=== PATIENT | male | born 1960 | race Caucasian/White ===

== ENCOUNTER 2024-06-28 12:49 | Inpatient (IN) ==
[2024-06-28 13:47] LABS: Hematocrit (blood only) 39.9 % (42.0-52.0); Hemoglobin 13.5 g/dl (14.0-18.0); Mean Corpuscular Hemoglobin 30.5 pg (25.0-34.0); Mean Corpuscular Hgb Conc 33.8 g/dL (32.0-36.0); Mean Corpuscular Volume 90.3 fL (80.0-100.0); Mean Platelet Volume 10.9 fL (9.4-12.4); Platelet Count 155 K/uL (130-400); RDW Coefficient of Variation 14.1 % (11.5-14.5); RDW Standard Deviation 47.1 fL (36.4-46.3); Red Blood Count 4.42 M/uL (4.70-6.10); White Blood Count 7.27 K/ul (4.8-10.8)
[2024-06-28 14:07] LABS: Albumin Level 3.7 gm/dl (3.4-5.0); BUN Creatinine Ratio 19.8 (10-20); Bilirubin,Total 0.9 mg/dl (0.2-1.0); Calcium 9.2 mg/dl (8.6-10.3); Creatinine Clr Calc Pharmacy 104.9 ml/min; Globulin 3.8 gm/dl (2.5-4.0); Potassium 3.9 mmol/L (3.5-5.1); Total Protein 7.5 gm/dl (6.0-8.3)
--- NOTE | 2024-06-28 14:08 | XRay Report ---
XR chest 1V portable HISTORY: 64 years-old Male Chest pain, nonspecific COMPARISON: None TECHNIQUE: AP view of the chest FINDINGS: Cardiac silhouette is upper limits of normal in size. Ill-defined bibasilar densities with interstiti al coarsening. No pneumothorax, large pleural effusion or overt pulmonary edema. Bones appear grossly intact. IMPRESSION: Mild ill-defined bibasilar opacities favor atelectasis versus scarring. A mild infectious or inflammatory pneumonitis could appear similarly. ACT 112: Negative or not required by law. The above report was generated using voice recognition software. It may contain grammatical, syntax o r spelling errors. Electronically signed by: Damon Vyas M.D. 06/28/2024 2:07 PM
[2024-06-28 14:12] LABS: Partial Thromboplastin Ratio 1.2; Partial Thromboplastin Time 33 Seconds (21-31); Prothrombin Time 10.9 Seconds (9.0-12.0)
[2024-06-28 14:14] LABS: Troponin I High Sensitivity 8.7 pg/ml (0-20)
--- NOTE | 2024-06-28 14:17 | Emergency Department Note ---
Impression & Plan Sepsis, Anaplasmosis ED Provider Note NAME: MELANIE ESCOBAR AGE: 64 SEX: M : 1960 ARRIVES VIA: Walk-In INFORMANT: Patient ED PROVIDER(S): Cuba Botello DO CHIEF COMPLAINT: Fever, shortness of breath, chest pain HPI: Patient is a 64-year-old male who presents to the ER for symptoms that started this past Thursday. He admits to chills, sweats and fevers. On Thursday started having shortness of breath. He denies any cough. He admits to exertional chest pain and shortness of breath with this. No belly pain nausea vomiting or diarrhea. No dysuria urgency or frequency. No other exacerbating or remitting factors. He admits that he is here locally at a hunting [place] from [place]. ADDITIONAL HISTORY OBTAINED: Per HPI Chronic Medical/Social Conditions Affecting Care: Per HPI PAST MEDICAL HISTORY:See Below PAST SURGICAL HISTORY:See Below FAMILY HISTORY:See Below SOCIAL HISTORY:See Below HOME MEDICATIONS:See Below ALLERGIES:See Below VITALS:See Below PHYSICAL EXAMINATION: GENERAL: Sitting up in bed, alert, well appearing, well nourished, no distress, non-toxic EYE EXAM: normal conjunctiva. OROPHARYNX: no exudate, no erythema, lips, buccal mucosa, and tongue normal and mucous membranes are moist NECK: supple, no nuchal rigidity, no adenopathy, non-tender LUNGS: Clear to auscultation. Normal chest wall mechanics HEART: Tachycardic, S1 normal and S2 normal ABDOMEN: abdomen soft, non-tender, normo-active bowel sounds, no masses, no rebound or guarding. UPPER EXTREMITIES: upper extremities are grossly normal. LOWER EXTREMITIES: No pitting edema. NEURO EXAM: Normal sensorium, cranial nerves II-XII grossly intact, normal speech, no gross weakness of arms, no gross weakness of legs. MEDICAL DECISION MAKING: Patient is a 64-year-old male who presents ER for the above-stated complaint. IV was established and blood work was obtained. He was found to be tachycardic and slightly hypotensive with systolic pressures in the 90s. He was febrile as well. Labs showed no significant leukocytosis. No anemia. BMP was unremarkable. LFTs with mild transaminitis. Troponin was negative. Pro-Steven slightly up. I ordered Lyme and anaplasmosis testing and anaplasmosis eventually came back positive. Patient was previously given upon arrival 3 L of IV fluids in combination with IV Rocephin. At the result of the anaplasmosis hospitalist had ordered IV doxycycline and. Systolic pressures improved with the fluids. He was updated at bedside. He is admitted to the hospitalist for sepsis. Heart rate was significantly elevated in the 140s. Did not use rate controlling medications as it was felt he needed to be appropriately fluid resuscitated. Consults/Care Managements Discussions: Per MDM Triage Nursing notes reviewed. Limited review of prior medical records performed Vital Signs: reviewed and remarkable for febrile and tachycardic Differential diagnosis: Differential diagnosis includes etiologies such as sepsis, UTI, pneumonia, metabolic, electrolyte abnormalities, cardiac sources, intracerebral event, toxicologic, neurological, as well as others were entertained. ER treatment provided: See below Diagnostics interpreted by me include EKG and cardiac monitoring as listed below: -Cardiac Monitoring: An order was placed for continuous cardiac monitoring. The monitor shows a rate of 140 with sinus rhythm. -ECG: Sinus tachycardia rate [address] depressions in the lateral leads and high lateral leads QTc 413 -Laboratory studies:Interpreted by me as stated above in MDM and shown below. Imaging studies: Xrays: As interpreted by me: Portable AP upright 1 view of the chest shows no focal infiltrate CTs show: none Procedures:none Critical Care: I have personally spent 45 minutes of critical care time in the direct management of this patient. This includes bedside care, interpretation of diagnostic studies, and testing, discussion with consultants, patient, and family members, and other required patient management activities. This 45 minutes is in excess of all separately billable procedures. Past Med/Surg History Problem List (Updated 06/28/24 @ 18:36 by Yonatan Esteban MD) Atrial flutter with rapid ventricular response Anaplasmosis Sepsis Medical History (Updated 06/28/24 @ 18:36 by Yontaan Esteban MD) Knee osteoarthritis Iron deficiency Hyperlipidemia Heart murmur Unsure of valvular disease Social History Smoking Status: Never smoker Hx Alcohol Use: Yes Alcohol type: wine Hx Substance Use: No Preferred Language: Croatian Communication Ability: Effective Broadcaster Required: No Beliefs That Will Affect Care: None Current Living Situation: Spouse Other Information That Helps Us Care for You: No Feels Safe at Home: Yes Safety Concerns: Feels Safe At This Time Assistive Devices: None Allergies Allergies Allergy/AdvReac Type Severity Reaction Status Date / Time No Known Allergies Allergy Unverified 06/28/24 17:53 Home Meds Home Medications Medication Instructions Recorded Confirmed atorvastatin 40 mg tablet 40 mg PO HS 06/28/24 06/28/24 Results & Data (ED) Vital Signs Vital Signs - 24 hr 06/28/24 12:51 06/28/24 13:52 06/28/24 14:07 Temperature 37.5 C 39.1 C H Temperature Source Temporal Artery Scan Oral Pulse Rate 139 H 136 H Pulse Rate [Apical] 142 H Pulse Rhythm [Apical] Regular Pulse Strength [Apical] Normal Respiratory Rate 19 22 Respiratory Effort / Characteristics Non-Labored Spontaneous Non-Labored Spontaneous Respiratory Depth Normal Normal Respiratory Pattern Regular Blood Pressure 114/69 Blood Pressure [Left Arm] 100/81 Blood Pressure Mean 84 Blood Pressure Mean [Left Arm] 87 Blood Pressure Position Sitting Blood Pressure Position [Left Arm] Sitting Pulse Oximetry 97 95 Oxygen Delivery Method Room Air Room Air Sepsis Recent Fever Within 48 Hours No Sepsis New/Unexplained Change in Mental Status No Sepsis Action Taken by Nursing No Action Required 06/28/24 14:08 06/28/24 15:16 06/28/24 15:47 Temperature Temperature Source Pulse Rate 142 H Pulse Rate [Apical] 142 H 142 H Pulse Rhythm [Apical] Pulse Strength [Apical] Respiratory Rate 20 24 20 Respiratory Effort / Characteristics Non-Labored Spontaneous Non-Labored Spontaneous Respiratory Depth Normal Normal Respiratory Pattern Regular Blood Pressure Blood Pressure [Left Arm] 94/73 L 97/79 L Blood Pressure Mean Blood Pressure Mean [Left Arm] 80 85 Blood Pressure Position Blood Pressure Position [Left Arm] Pulse Oximetry 96 96 96 Oxygen Delivery Method Room Air Room Air Room Air Sepsis Recent Fever Within 48 Hours Sepsis New/Unexplained Change in Mental Status Sepsis Action Taken by Nursing Laboratory Data 06/28/24 13:25 06/28/24 13:25 Lab Results 06/28/24 06/28/24 06/28/24 Range/Units 13:02 13:02 13:25 WBC 7.27 (4.8-10.8) K/ul RBC 4.42 L (4.70-6.10) M/uL Hgb 13.5 L (14.0-18.0) g/dl Hct 39.9 L (42.0-52.0) % MCV 90.3 (80.0-100.0) fL MCH 30.5 (25.0-34.0) pg MCHC 33.8 (32.0-36.0) g/dL RDW Std Deviation 47.1 H (36.4-46.3) fL RDW Coeff of Michael 14.1 (11.5-14.5) % Plt Count 155 (130-400) K/uL MPV 10.9 (9.4-12.4) fL Neutrophils % (Manual) 43 % Lymphocytes % (Manual) 18 % Reactive Lymphs % (Man) 30 % Monocytes % (Manual) 9 % Neutrophils # (Manual) 3.13 (1.40-6.50) K/uL Total Absolute Neuts 3.13 (1.4-6.5) K/uL Lymphocytes # (Manual) 1.31 (1.2-3.4) K/uL Reactive Lymphs # 2.18 K/uL Total Abs Lymphocytes 3.49 H (1.2-3.4) K/uL Monocytes # (Manual) 0.65 H (0.11-0.59) K/uL PT 10.9 (9.0-12.0) Seconds INR 1.0 (0.9-1.1) APTT 33 H (21-31) Seconds PTT Ratio 1.2 Sodium 136 (136-145) mmol/L Potassium 3.9 (3.5-5.1) mmol/L Chloride 100 (98-107) mmol/L Carbon Dioxide 27 (21-32) mmol/L Anion Gap 9 (3-11) BUN 18 (6-23) mg/dl Creatinine 0.91 (0.6-1.4) mg/dl Est Cr Clr Drug Dosing 104.9 ml/min eGFR 93.53 BUN/Creatinine Ratio 19.8 (10-20) Glucose 112 H (70-99(Fasting)) mg/dl Lactate (0.4-2.0) mmol/L Calcium 9.2 (8.6-10.3) mg/dl Total Bilirubin 0.9 (0.2-1.0) mg/dl AST 57 H (13-39) U/L ALT 59 H (7-52) U/L Alkaline Phosphatase 70 (34-104) U/L Troponin I High Sens 8.7 (0-20) pg/ml Total Protein 7.5 (6.0-8.3) gm/dl Albumin 3.7 (3.4-5.0) gm/dl Globulin 3.8 (2.5-4.0) gm/dl Albumin/Globulin Ratio 1.0 (0.9-2) Lipase 34 (11-82) U/L Procalcitonin 0.75 H Cancelled (0-0.5) ng/ml Adenovirus (PCR) (NotDetected) Anaplasma Smear See Comment A Babesia Smear See Comment B. pertussis DNA (PCR) (NotDetected) B.parapertussis DNA PCR (NotDetected) Lyme Disease Screen Negative (Negative) C. pneumoniae DNA (PCR) (NotDetected) Coronavirus OC43 (PCR) (NotDetected) Coronavirus HKU1 (PCR) (NotDetected) Coronavirus 229E (PCR) (NotDetected) SARS-CoV-2 (PCR) (NotDetected) Coronavirus NL63 (PCR) (NotDetected) Human Metapneumovir PCR (NotDetected) Influenza Type A (PCR) (NotDetected) Influenza Type B (PCR) (NotDetected) M. pneumoniae (PCR) (NotDetected) Parainfluenza 1 (PCR) (NotDetected) Parainfluenza 2 (PCR) (NotDetected) Parainfluenza 3 (PCR) (NotDetected) Parainfluenza 4 (PCR) (NotDetected) RSV (PCR) (NotDetected) Entero/Rhino (PCR) (NotDetected) 06/28/24 06/28/24 Range/Units 14:47 14:48 WBC (4.8-10.8) K/ul RBC (4.70-6.10) M/uL Hgb (14.0-18.0) g/dl Hct (42.0-52.0) % MCV (80.0-100.0) fL MCH (25.0-34.0) pg MCHC (32.0-36.0) g/dL RDW Std Deviation (36.4-46.3) fL RDW Coeff of Michael (11.5-14.5) % Plt Count (130-400) K/uL MPV (9.4-12.4) fL Neutrophils % (Manual) % Lymphocytes % (Manual) % Reactive Lymphs % (Man) % Monocytes % (Manual) % Neutrophils # (Manual) (1.40-6.50) K/uL Total Absolute Neuts (1.4-6.5) K/uL Lymphocytes # (Manual) (1.2-3.4) K/uL Reactive Lymphs # K/uL Total Abs Lymphocytes (1.2-3.4) K/uL Monocytes # (Manual) (0.11-0.59) K/uL PT (9.0-12.0) Seconds INR (0.9-1.1) APTT (21-31) Seconds PTT Ratio Sodium (136-145) mmol/L Potassium (3.5-5.1) mmol/L Chloride (98-107) mmol/L Carbon Dioxide (21-32) mmol/L Anion Gap (3-11) BUN (6-23) mg/dl Creatinine (0.6-1.4) mg/dl Est Cr Clr Drug Dosing ml/min eGFR BUN/Creatinine Ratio (10-20) Glucose (70-99(Fasting)) mg/dl Lactate 1.5 (0.4-2.0) mmol/L Calcium (8.6-10.3) mg/dl Total Bilirubin (0.2-1.0) mg/dl AST (13-39) U/L ALT (7-52) U/L Alkaline Phosphatase (34-104) U/L Troponin I High Sens (0-20) pg/ml Total Protein (6.0-8.3) gm/dl Albumin (3.4-5.0) gm/dl Globulin (2.5-4.0) gm/dl Albumin/Globulin Ratio (0.9-2) Lipase (11-82) U/L Procalcitonin (0-0.5) ng/ml Adenovirus (PCR) Not Detected (NotDetected) Anaplasma Smear Babesia Smear B. pertussis DNA (PCR) Not Detected (NotDetected) B.parapertussis DNA PCR Not Detected (NotDetected) Lyme Disease Screen (Negative) C. pneumoniae DNA (PCR) Not Detected (NotDetected) Coronavirus OC43 (PCR) Not Detected (NotDetected) Coronavirus HKU1 (PCR) Not Detected (NotDetected) Coronavirus 229E (PCR) Not Detected (NotDetected) SARS-CoV-2 (PCR) Not Detected (NotDetected) Coronavirus NL63 (PCR) Not Detected (NotDetected) Human Metapneumovir PCR Not Detected (NotDetected) Influenza Type A (PCR) Not Detected (NotDetected) Influenza Type B (PCR) Not Detected (NotDetected) M. pneumoniae (PCR) Not Detected (NotDetected) Parainfluenza 1 (PCR) Not Detected (NotDetected) Parainfluenza 2 (PCR) Not Detected (NotDetected) Parainfluenza 3 (PCR) Not Detected (NotDetected) Parainfluenza 4 (PCR) Not Detected (NotDetected) RSV (PCR) Not Detected (NotDetected) Entero/Rhino (PCR) Not Detected (NotDetected) Administered Medications Discontinued Medications Azithromycin (Azithromycin 250 Mg Tab) 500 mg PO NOW ONE Stop: 06/28/24 14:15 Last Admin: 06/28/24 14:53 Dose: 500 mg Documented By: CAW Sodium Chloride (Nss) 1,000 mls @ 999 mls/hr IV .Q1H1M TYLER Stop: 06/28/24 16:15 Last Infusion: 06/28/24 16:19 Dose: Infused Documented By: Admin: 06/28/24 15:18 Dose: 999 mls/hr Documented By: Infusion: 06/28/24 15:18 Dose: Infused Documented By: Admin: 06/28/24 14:45 Dose: 999 mls/hr Documented By: ESTELA Ceftriaxone Sodium (Rocephin) 2,000 mg in 50 mls @ 100 mls/hr IV NOW STA Stop: 06/28/24 14:43 Last Infusion: 06/28/24 15:30 Dose: Infused Documented By: Admin: 06/28/24 14:56 Dose: 100 mls/hr Documented By: CAW Sodium Chloride (Nss) 1,000 mls @ 999 mls/hr IV .Q1H1M ONE Stop: 06/28/24 16:35 Last Infusion: 06/28/24 17:09 Dose: Infused Documented By: Admin: 06/28/24 15:46 Dose: 999 mls/hr Documented By: KLARISSA Doxycycline Hyclate 100 mg/ (Dextrose) 100 mls @ 50 mls/hr IV NOW STA Stop: 06/28/24 17:51 Last Admin: 06/28/24 16:58 Dose: 50 mls/hr Documented By: ESTELA Doxycycline Hyclate 100 mg/ (Dextrose) 100 mls @ 50 mls/hr IV Q12H TYLER Stop: 07/12/24 04:59 Last Admin: 06/28/24 19:20 Dose: Not Given Documented By: Admin: 06/28/24 19:19 Dose: Not Given Documented By: JB Ibuprofen (Ibuprofen 200 Mg Tab) 400 mg PO NOW STA Stop: 06/28/24 14:15 Last Admin: 06/28/24 14:35 Dose: 400 mg Documented By: CAW Imaging Data Radiologist's Impression: Chest X-Ray 06/28/24 12:57 XR chest 1V portable HISTORY: 64 years-old Male Chest pain, nonspecific COMPARISON: None TECHNIQUE: AP view of the chest FINDINGS: Cardiac silhouette is upper limits of normal in size. Ill-defined bibasilar densities with interstitial coarsening. No pneumothorax, large pleural effusion or overt pulmonary edema. Bones appear grossly intact. IMPRESSION: Mild ill-defined bibasilar opacities favor atelectasis versus scarring. A mild infectious or inflammatory pneumonitis could appear similarly. ACT 112: Negative or not required by law. The above report was generated using voice recognition software. It may contain grammatical, syntax or spelling errors. Electronically signed by: Damon Vyas M.D. 06/28/2024 2:07 PM Gallbladder Ultrasound 06/28/24 16:04 EXAM: Ultrasound gallbladder CLINICAL HISTORY: Fever, right upper quadrant pain TECHNIQUE: Ultrasound interrogation of the gallbladder was performed with grayscale and color Doppler imaging. PRIORS: FINDINGS: The liver is normal in configuration and enlarged measuring 23 cm. Normal liver parenchyma demonstrated. No intrahepatic ductal dilatation. No hepatic mass. Hepatopetal flow in the main portal vein is normal. No cholelithiasis, gallbladder wall thickening or sonographic Vides sign. The common bile duct measures 4 mm. No ascites Visualization of the pancreas is diminished due to shadowing bowel gas. The pancreas may be enlarged and slightly hypoechoic in appearance which could suggest edema. No pancreatic ductal dilatation identified. Right kidney is normal in size and configuration with no hydronephrosis. IVC and aorta are patent. Aorta is normal in size. IMPRESSION: The possibility of an enlarged edematous pancreas is raised, nonspecific, and could represent pancreatitis in the proper clinical setting. Please correlate with laboratory values and CT could be considered if appropriate. Normal sonographic appearance of the gallbladder and common bile duct. Hepatomegaly. Electronically signed by Stephanie Posey 06-28-2024 5:01 PM Discharge Plan Visit Data Chief Complaint: Chest Pain Stated Complaint: CHEST PAIN, ED Provider: Cuba Botello Discharge Problem: Sepsis, Anaplasmosis Patient Disposition: Admitted As Inpatient Discharge Instructions Interventions: ED Discharge Assessment Last Done: 06/28/24 17:53
[2024-06-28 14:23] LABS: Influenza A virus by PCR Negative (Neg); Influenza B virus by PCR Negative (Neg); RSV by PCR Negative (Neg); SARS CoV2 RNA(COVID-19) Ceph NEGATIVE (Negative)
[2024-06-28 14:28] LABS: ALC (manual) 3.49 K/uL (1.2-3.4); ANC (manual) 3.13 K/uL (1.4-6.5); Lymphocytes # (manual) 1.31 K/uL (1.2-3.4); Lymphocytes % (manual) 18 %; Monocytes # (manual) 0.65 K/uL (0.11-0.59); Monocytes % (manual) 9 %; Neutrophils # (manual) 3.13 K/uL (1.40-6.50); Neutrophils % (manual) 43 %; Reactive Lymphocytes # (manual) 2.18 K/uL; Reactive Lymphocytes % (manual) 30 %
[2024-06-28] MEDS: IBUPROFEN 200 MG TAB PO STA (14:35)
[2024-06-28] MEDS: SODIUM CHLORIDE 0.9% 1,000 ML IV SCH (14:45)
[2024-06-28] MEDS: AZITHROMYCIN 250 MG TAB PO ONE (14:53)
[2024-06-28] MEDS: cefTRIAXone SODIUM 2,000 MG/50 ML BAG IV STA (14:56)
[2024-06-28 15:27] LABS: Procalcitonin 0.75 ng/ml (0-0.5)
[2024-06-28] MEDS: SODIUM CHLORIDE 0.9% 1,000 ML IV ONE (15:46)
[2024-06-28 15:52] LABS: Adenovirus PCR Not Detected (NotDetected); Bordetella parapertussis PCR Not Detected (NotDetected); Bordetella pertussis PCR Not Detected (NotDetected); Chlamydia pneumoniae PCR Not Detected (NotDetected); Coronavirus 229E PCR Not Detected (NotDetected); Coronavirus CoV-2 (COVID19)PCR Not Detected (NotDetected); Coronavirus HKU1 PCR Not Detected (NotDetected); Coronavirus NL63 PCR Not Detected (NotDetected); Coronavirus OC43PCR Not Detected (NotDetected); Human Metapneumovirus PCR Not Detected (NotDetected); Influenza A PCR Not Detected (NotDetected); Influenza B PCR Not Detected (NotDetected); Mycoplasma pneumoniae PCR Not Detected (NotDetected); Parainfluenza Virus 1 PCR Not Detected (NotDetected); Parainfluenza Virus 2 PCR Not Detected (NotDetected); Parainfluenza Virus 3 PCR Not Detected (NotDetected); Parainfluenza Virus 4 PCR Not Detected (NotDetected); Respiratory Syncytial VirusPCR Not Detected (NotDetected); Rhinovirus/Enterovirus PCR Not Detected (NotDetected)
[2024-06-28 15:53] LABS: Lyme Screen Rflx Confirmation Negative (Negative)
--- NOTE | 2024-06-28 16:04 | History & Physical Report ---
Date of Service June 28, 2024 Assessment & Plan (1) Sepsis: Plan: Suspected source anaplasmosis (smear pending), RUQ US to assess for cholecystitis as having RUQ pain with elevated LFTs Other tick borne illness labs pending No urinary symptoms to suspect UA represents an infection CXR without significant pneumonia changes Doxycycline 100mg IV BID Lactate WNL but hypotensive therefore received 3L NSS bolus Suspect ongoing hypotension is related to his a. flutter with rapid rate rather than ongoing fluid deficit (2) Atrial flutter with rapid ventricular response: Plan: In setting of sepsis, unclear if he will require assisted anticoagulation, [id number] 1, will start Eliquis 5mg PO BID Rate control generally less successful with a. flutter than fib and given hypotension will opt for rhythm control to cardiovert with amiodarone but without bolus Mg + TSH labs NPO after midnight for possible electrical cardioversion tomorrow if remains in a. flutter Consult cardiology (3) Hyperlipidemia: Plan: Continue atorvastatin (4) Transaminitis: Plan: Viral hepatitis, EBV and CMV (5) Anaplasmosis: Plan VTE Prophylaxis - Eliquis Diet - regular Disposition - admit to PCU Admission and Anticipated Discharge Date Admission Date: June 29, 2024 History of Present Illness Chief Complaint: Fever/chills Primary Care Provider: NO PCP Lazarus Guerrero is a 64 year old male who presents to the ER with fever, chills and shortness of breath on exertion. He is from [place] and in [place] for hunting. Since Thursday (4 days ago) he reports cyclic fever and chills, reduced appetite, headache and dehydrated despite increasing fluid intakes. He reports gong hunting yesterday and had difficulty even walking. He went to an urgent care in [place] who directed him to the ER. He wonders whether a sandwich he ate caused his illness although denies any nausea, vomiting, abdominal pain or diarrhea. No respiratory symptoms other than shortness of breath on exertion. No urinary symptoms. Having palpitations, no chest pain, pedal edema. 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 No prior cardiovascular disease. Allergies Allergy/AdvReac Type Severity Reaction Status Date / Time No Known Allergies Allergy Unverified 06/28/24 17:53 Home Medications Medication Instructions Recorded Confirmed Type atorvastatin 40 mg tablet 40 mg PO HS 06/28/24 06/28/24 History Past Med/Surg History Problem List (Updated 06/29/24 @ 00:23 by Yonatan Esteban MD) Transaminitis Atrial flutter with rapid ventricular response Anaplasmosis Sepsis Medical History (Updated 06/29/24 @ 00:23 by Yonatan Esteban MD) Sjogren syndrome Knee osteoarthritis Iron deficiency Hyperlipidemia Heart murmur Unsure of valvular disease Social History Smoking Status: Never smoker Hx Alcohol Use: Yes Alcohol type: wine Hx Substance Use: No Preferred Language: Italian Communication Ability: Effective Tug Hand Required: No Beliefs That Will Affect Care: None Current Living Situation: Spouse Other Information That Helps Us Care for You: No Feels Safe at Home: Yes Safety Concerns: Feels Safe At This Time Assistive Devices: None Review of Systems Review of Systems: All systems reviewed & are unremarkable except as noted in HPI & below Physical Exam Constitutional: WD/WN, vitals as above ENMT: external ear and nose normal, oropharynx normal Respiratory: normal respiratory effort, lungs clear to auscultation Cardiovascular: Rate/Rhythm: regular rhythm and + tachycardic Heart Sounds: + murmur (systolic, loudest at apex) Extremities: normal capillary refill; no calf tenderness and no pedal edema Gastrointestinal (Abdomen): Inspection/Auscultation: abdomen normal to inspection; abdomen not distended Percussion/Palpation: + abdomen tender (RUQ pain) and abdomen soft Musculoskeletal: no cyanosis or clubbing, extremities motor strength 5/5 Skin: no rashes, warm and dry Neurologic: moves all extremities and awake; not confused Psychiatric: A+Ox3, euthymic affect Results & Data Results & Data Vital Signs (Past 12 Hours) Vital Signs Temp Pulse Pulse Resp BP BP Pulse Ox 06/28/24 15:47 142 H 20 97/79 L 96 06/28/24 15:16 142 H 24 94/73 L 96 06/28/24 14:08 142 H 20 96 06/28/24 14:07 136 H 06/28/24 13:52 39.1 C H 142 H 22 100/81 95 06/28/24 12:51 37.5 C 139 H 19 114/69 97 O2 Del Method 06/28/24 15:47 Room Air 06/28/24 15:16 Room Air 06/28/24 14:08 Room Air 06/28/24 14:07 06/28/24 13:52 Room Air 06/28/24 12:51 Room Air Laboratory Results Abnormal lab results 06/28/24 06/28/24 Range/Units 13:02 13:25 RBC 4.42 L (4.70-6.10) M/uL Hgb 13.5 L (14.0-18.0) g/dl Hct 39.9 L (42.0-52.0) % RDW Std Deviation 47.1 H (36.4-46.3) fL Total Abs Lymphocytes 3.49 H (1.2-3.4) K/uL Monocytes # (Manual) 0.65 H (0.11-0.59) K/uL APTT 33 H (21-31) Seconds Glucose 112 H (70-99(Fasting)) mg/dl AST 57 H (13-39) U/L ALT 59 H (7-52) U/L Procalcitonin 0.75 H (0-0.5) ng/ml Diagnostic Findings XR chest 1V portable HISTORY: 64 years-old Male Chest pain, nonspecific COMPARISON: None TECHNIQUE: AP view of the chest FINDINGS: Cardiac silhouette is upper limits of normal in size. Ill-defined bibasilar densities with interstitial coarsening. No pneumothorax, large pleural effusion or overt pulmonary edema. Bones appear grossly intact. IMPRESSION: Mild ill-defined bibasilar opacities favor atelectasis versus scarring. A mild infectious or inflammatory pneumonitis could appear similarly. Medications Administered ER Medications Given: Normal saline 2L bolus Ibuprofen 400mg PO Ceftriaxone 2000mg IV Azithromycin 500 mg PO Normal saline 1L bolus ECG Rate (beats per minute): 143 Rhythm: atrial flutter Findings: + RBBB (incomplete) and + left axis deviation Comparison ECG Date: no prior available Code Status & VTE Plan Code Status Full VTE Prophylaxis Plan VTE Prophylaxis will be ordered: Yes PG Care Time/CCT Total # of Minutes Spent Total Time Spent with Patient: Total time spent is greater than 50% in coordination of care (as documented) at patient's floor/unit and/or counseling patient: Coding Level of Care Code 05394 INT INP/OBS CARE 3/75MIN Diagnoses Sepsis without acute organ dysfunction, due to unspecified organism A41.9 Sepsis type: sepsis due to unspecified organism Sepsis acute organ dysfunction status: without acute organ dysfunction Atrial flutter with rapid ventricular response I48.92 Hyperlipidemia E78.5 Transaminitis R74.01 Anaplasmosis A77.49 (1) Sepsis Sepsis type: sepsis due to unspecified organism Sepsis acute organ dysfun ction status: without acute organ dysfunction Qualified Code(s): A41.9 - Sepsis, unspecified organism
[2024-06-28] MEDS: DOXYCYCLINE HYCLATE 100 MG in DEXTROSE 5% MINI-B 100 ML IV STA (16:58)
--- NOTE | 2024-06-28 17:02 | Ultrasound Report ---
EXAM: Ultrasound gallbladder CLINICAL HISTORY: Fever, right upper quadrant pain TECHNIQUE: Ultrasound interrogation of the gallbladder was performed with grayscale and color Doppler imaging. PRIORS: FINDINGS: The liver is normal in configuration and enlarged measuring 23 cm. Normal liver parenchyma demonstrated. No intrahepatic ductal dilatation. No hepatic mass. Hepatopetal flow in the main portal vein is normal. No cholelithiasis, gallbladder wall thickening or sonographic Vides sign. The common bile duct measures 4 mm. No ascites Visualization of the pancreas is diminished due to shadowing bowel gas. The pancreas may be enlarged and slightly hypoechoic in appearance which could suggest edema. No pancreatic ductal dilatation identified. Right kidney is normal in size and configuration with no hydronephrosis. IVC and aorta are patent. Aorta is normal in size. IMPRESSION: The possibility of an enlarged edematous pancreas is raised, nonspecific, and could represent pancreatitis in the proper clinical setting. Please correlate with laboratory values and CT could be considered if appropriate. Normal sonographic appearance of the gallbladder and common bile duct. Hepatomegaly. Electronically signed by Stephanie Posey 06-28-2024 5:01 PM
[2024-06-28] MEDS ORDERED: ACETAMINOPHEN 325 MG TAB PO PRN (18:40)
[2024-06-28] MEDS ORDERED: 0.2 MICRON FILTER SET 1 EACH IV ONE (18:40)
[2024-06-28] MEDS: DOXYCYCLINE HYCLATE 100 MG in DEXTROSE 5% MINI-B 100 ML IV SCH (19:19)
[2024-06-28 19:26] LABS: Appearance Urine Turbid (Clear); Bilirubin Urine 1+ (Negative); Blood Urine Negative (Negative); Color Urine Dark Yellow; Epithelial Cell Urine Auto 0-2 /hpf (0-2); Glucose Urine UA Negative (Negative); Ketones Urine 2+ (Negative); Leukocyte Esterase Urine Trace (Negative); Nitrite Urine Negative (Negative); Protein Urine 2+ (Negative); Specific Gravity Urine 1.035 (1.000-1.030); Urobilinogen Urine Positive (Negative); WBC Urine Automated 0-5 /hpf (0-5)
[2024-06-28] MEDS: AMIODARONE / D5W 360 MG/200 ML BAG IV ONE (19:39)
[2024-06-28 19:52] LABS: Hyaline Casts Urine Present /lpf (None Presnt)
[2024-06-28 19:56] LABS: Magnesium 1.6 mg/dl (1.7-2.4)
[2024-06-28 19:57] LABS: Bacteria Urine Automated 1+ (None Seen); RBC Urine Automated 0-2 /hpf (0-2)
[2024-06-28 19:58] LABS: Calcium Oxalate Crystals Urine Present (None Prsent)
[2024-06-28 20:05] LABS: Troponin I High Sensitivity 8.9 pg/ml (0-20)
[2024-06-28 20:14] LABS: Thyroid Stimulating Hormone 1.447 uIu/ml (0.300-4.500)
[2024-06-28 21:00] LABS: Hep B Surface Ag with confirm Negative (Negative)
[2024-06-28 21:04] LABS: Hep C Ab Rflx HepCQuant RNA Negative (Negative)
[2024-06-28] MEDS: APIXABAN 5 MG TABLET PO SCH (21:08)
[2024-06-28] MEDS: ATORVASTATIN 40 MG TAB PO SCH (21:08)
[2024-06-28] MEDS: MAGNESIUM OXIDE 400 MG TAB PO SCH (21:08)
[2024-06-28] MEDS: MAGNESIUM SULFATE / D5W 1 GM/100 ML BAG IV SCH (21:30)
[2024-06-29] MEDS: AMIODARONE / D5W 360 MG/200 ML BAG IV SCH (00:53)
[2024-06-29] MEDS ORDERED: AMIODARONE / D5W 360 MG/200 ML BAG IV SCH (01:50)
[2024-06-29] MEDS: DOXYCYCLINE HYCLATE 100 MG in DEXTROSE 5% MINI-B 100 ML IV SCH (05:42)
[2024-06-29 07:47] LABS: Hematocrit (blood only) 32.1 % (42.0-52.0); Hemoglobin 10.7 g/dl (14.0-18.0); Mean Corpuscular Hemoglobin 30.3 pg (25.0-34.0); Mean Corpuscular Hgb Conc 33.3 g/dL (32.0-36.0); Mean Corpuscular Volume 90.9 fL (80.0-100.0); Mean Platelet Volume 11.3 fL (9.4-12.4); Platelet Count 130 K/uL (130-400); RDW Coefficient of Variation 14.6 % (11.5-14.5); RDW Standard Deviation 49.5 fL (36.4-46.3); Red Blood Count 3.53 M/uL (4.70-6.10); White Blood Count 7.44 K/ul (4.8-10.8)
[2024-06-29 08:06] LABS: BUN Creatinine Ratio 21.9 (10-20); Bilirubin,Total 0.5 mg/dl (0.2-1.0); Creatinine Clr Calc Pharmacy 160.2 ml/min; Magnesium 2.2 mg/dl (1.7-2.4); Potassium 3.8 mmol/L (3.5-5.1)
[2024-06-29 08:21] VITALS: BP 111/57; PULSE 68; RESP 20; TEMP 97.9; O2SAT 96
--- NOTE | 2024-06-29 09:17 | XCELERA ---
[id number] \\[email or web address]\[id number]
--- NOTE | 2024-06-29 09:29 | Electrocardiogram Report ---
Test Reason : Blood Pressure : */* mmHG Vent. Rate : 143 BPM Atrial Rate : 283 BPM P-R Int : * ms QRS Dur : 110 ms QT Int : 268 ms P-R-T Axes : 265 -44 121 degrees QTcB Int : 413 ms Atrial flutter with variable A-V block Left axis deviation Incomplete right bundle branch block Left ventricular hypertrophy with repolarization abnormality ( R in aVL ) Abnormal ECG No previous ECGs available Confirmed by Ismael Post ([id number]) on 06/29/2024 9:29:19 AM Referred By: Confirmed By: Ismael Post
--- NOTE | 2024-06-29 09:39 | Cardiology Consultation ---
Date of Consultation June 29, 2024 Assessment & Plan (1) Atrial flutter with rapid ventricular response: (2) Heart murmur: (3) Hyperlipidemia: Plan Mr. Guerrero is a 64 year old male with a history of Hyperlipidemia, Sjogren's Syndrome, Heart Murmur, Anemia, and Osteoarthritis who was admitted to [facility] on 06/28/24 with Anaplasmosis, Possible Sepsis, and Newly Diagnosed Atrial Flutter with RVR. His complaints included fevers, chills, myalgias that started on Thursday followed by the development of shortness of breath, chest pain, and tachy-palpitations that started on Thursday. In the emergency room he was noted to be in atrial flutter with variable AV block with a heart rate in the 140s, he was hypomagnesemic with a magnesium of 1.6 mg/dL on admission, he has elevated ALT and AST, elevated procalcitonin level at 0.75 ng/mL, and he tested positive for anaplasmosis. Hospitalist service was consulted for admission. Admitting diagnosis included anaplasmosis and possible sepsis. Both of his EKGs from 06/28/24 show atrial flutter with variable AV block, left axis deviation, incomplete right bundle branch block, and LVH with repolarization abnormality. His high sensitivity troponin I levels have been unremarkable at 0.87 pg/mL and 8.9 pg/mL. His magnesium was supplemented and hypomagnesemia has corrected. He has been started on the appropriate antibiotic therapy including IV Doxycycline. Additionally he was started on Eliquis 5 mg b.i.d. and was given IV Amiodarone without a bolus. On cardiac monitoring he converted from atrial flutter to normal sinus rhythm earlier today at 1:36 a.m. and has maintained a sinus rhythm since that time. Patient is currently being seen in room 240-2 and states that he feels significantly better today than he did on admission. He is 100% better. He is no longer experiencing any shortness a breath, tachy-palpitations, or chest discomfort. He has not had any further fevers, chills, and his myalgias have improved. Patient specifically denies any chest pain, heaviness, tightness, pressure, or discomfort. He denies any shortness of breath, orthopnea, or PND. He has not had any neurologic symptoms suggestive of stroke or mini stroke. We discussed what atrial flutter is, the risks associated with atrial flutter, and discussed various management strategies including anticoagulation, rate- controlling medications, and there is also possibility of catheter based therapy should he have recurrent episodes of atrial flutter in the future. Fortunately he did convert overnight to a sinus rhythm with the use of Amiodarone. I have explained that Amiodarone is a good drug for keeping one's heart in rhythm -- however there are potential for long-term side effects with this medication so he will not be maintained on it. His [id number] is 1, anticoagulation is indicated. Recommend the followin. Discontinue IV Amiodarone. 2. Continue Eliquis 5 mg b.i.d.. 3. Start Metoprolol Succinate ER 50 mg daily. 4. Continue Atorvastatin 40 mg daily. 5. Keep appointment with your [employer] in [place] next week as previously scheduled. Thank you for asking us to see this patient in consultation. He is stable from a cardiac standpoint for discharge to home. History of Present Illness Reason for Consultation: -- Atrial Flutter with RVR. Requesting Physician: Shelley Mata MD Attending Physician: Ismael Post MD History of Present Illness Mr. Guerrero is a 64 year old male with a history of Hyperlipidemia, Sjogren's Syndrome, Heart Murmur, Anemia, and Osteoarthritis who presented to [facility] ER on 06/28/24 complaining of fevers, chills, myalgias that started on Thursday followed by the development of shortness of breath, chest pain, and tachy-palpitations that started on Thursday. In the emergency room he was noted to be in atrial flutter with variable AV bl ock with a heart rate in the 140s, he was hypomagnesemic with a magnesium of 1.6 mg/dL on admission, he has elevated ALT and AST, elevated procalcitonin level at 0.75 ng/mL, and he tested positive for anaplasmosis. Hospitalist service was consulted for admission. Admitting diagnosis included anaplasmosis and possible sepsis. Both of his EKGs from 06/28/24 show atrial flutter with variable AV bl ock, left axis deviation, incomplete right bundle branch block, and LVH with repolarization abnormality. His high sensitivity troponin I levels have been unremarkable at 0.87 pg/mL and 8.9 pg/mL. His magnesium was supplemented and hypomagnesemia has corrected. He has been started on the appropriate antibiotic therapy including IV Doxycycline. Additionally he was started on Eliquis 5 mg b.i.d. and was given IV Amiodarone without a bolus. On cardiac monitoring he converted from atrial flutter to normal sinus rhythm earlier today at 1:36 a.m. and has maintained a sinus rhythm since that time. Patient is currently being seen in room 240-2 and states that he feels significantly better today than he did on admission. He is 100% better. He is no longer experiencing any shortness a breath, tachy palpitations, or chest discomfort. He has not had any further fevers, chills, and his myalgias have improved. Patient specifically denies any chest pain, heaviness, tightness, pressure, or discomfort. He denies any shortness of breath, orthopnea, or PND. He has not had any neurologic symptoms suggestive of stroke or mini stroke. ECHOCARDIOGRAM 06/29/24: -- Normal LV size, wall motion, and systolic function. -- LVEF 55% to 60%. -- Mild concentric LVH. -- Mild mitral regurgitation. -- No prior studies available for comparison. Allergies Allergy/AdvReac Type Severity Reaction Status Date / Time No Known Allergies Allergy Unverified 06/28/24 17:53 Home Medications Medication Instructions Recorded Confirmed Type atorvastatin 40 mg tablet 40 mg PO HS 06/28/24 06/28/24 History apixaban 5 mg tablet (Eliquis) 5 mg PO BID #60 tabs 06/29/24 Rx doxycycline hyclate 100 mg tablet 100 mg PO BID #18 tabs 06/29/24 Rx magnesium oxide 400 mg (241.3 mg 400 mg PO HS #30 tabs 06/29/24 Rx magnesium) tablet metoprolol succinate 50 mg 50 mg PO QAM #30 tabs 06/29/24 Rx tablet,extended release 24 hr Patient History Medical History Sjogren syndrome Knee osteoarthritis Iron deficiency Social History Smoking Status: Never smoker Hx Alcohol Use: Yes Alcohol type: wine Hx Substance Use: No Preferred Language: Mongolian Communication Ability: Effective [employer] Required: No Beliefs That Will Affect Care: None Current Living Situation: Spouse Feels Safe at Home: Yes Assistive Devices: None Review of Systems Review of Systems: -- As per HPI. Physical Exam Physical Exam: Blood pressure 111/57, pulse 68 and regular. GENERAL: Patient in no acute distress. HEENT: Head is atraumatic, normocephalic. EOM's intact. Facies symmetric. No perioral cyanosis. NECK: No JVD. JVP is not elevated. Carotid upstrokes are + 2 bilaterally without bruits. CHEST/LUNGS: Clear to auscultation throughout all lung purdy. No wheezes, rales, or crackles. CVS: S1 and S2 are regular with a grade 2/6 apical holosystolic murmur. No diastolic murmurs. No gallops or rubs. PMI is nonpalpable. No lifts, heaves, or thrills. No abdominal aortic or renal bruits. ABDOMINAL EXAM: Bowel sounds are present. EXTREMITIES: No clubbing or cyanosis. No edema. NEUROLOGIC EXAM: Patient is awake, alert, and oriented. Pleasant and cooperative. Answers questions appropriately. Speech is clear. MARKETING OFFICER: -- Converted from A-Flutter to normal si nus rhythm at 0136 this morning. -- No significant conversion pause. Results & Data Vital Signs (Past 12 Hours) Vital Signs Temp Pulse Pulse Resp BP Pulse Ox O2 Del Method 06/29/24 08:00 36.6 C 68 20 111/57 L 96 Room Air 06/29/24 07:08 83 06/29/24 03:05 36.5 C 84 16 107/68 95 Room Air 06/29/24 00:04 36.8 C 133 H 16 94/58 L 95 Room Air 06/28/24 22:02 Room Air Laboratory Results Laboratory Results - last 24 hr 06/28/24 06/28/24 06/28/24 13:02 13:02 13:25 WBC 7.27 RBC 4.42 L Hgb 13.5 L Hct 39.9 L MCV 90.3 MCH 30.5 MCHC 33.8 RDW Std Deviation 47.1 H RDW Coeff of Michael 14.1 Plt Count 155 MPV 10.9 Neutrophils % (Manual) 43 Lymphocytes % (Manual) 18 Reactive Lymphs % (Man) 30 Monocytes % (Manual) 9 Neutrophils # (Manual) 3.13 Total Absolute Neuts 3.13 Lymphocytes # (Manual) 1.31 Reactive Lymphs # 2.18 Total Abs Lymphocytes 3.49 H Monocytes # (Manual) 0.65 H Peripher Smr Path Cons Pending PT 10.9 INR 1.0 APTT 33 H PTT Ratio 1.2 Sodium 136 Potassium 3.9 Chloride 100 Carbon Dioxide 27 Anion Gap 9 BUN 18 Creatinine 0.91 Est Cr Clr Drug Dosing 104.9 eGFR 93.53 BUN/Creatinine Ratio 19.8 Glucose 112 H Lactate Calcium 9.2 Magnesium Total Bilirubin 0.9 AST 57 H ALT 59 H Alkaline Phosphatase 70 Troponin I High Sens 8.7 Total Protein 7.5 Albumin 3.7 Globulin 3.8 Albumin/Globulin Ratio 1.0 Lipase 34 Procalcitonin 0.75 H Cancelled TSH Urine Color Urine Appearance Urine pH Ur Specific Frederic Urine Protein Urine Glucose (UA) Urine Ketones Urine Blood Urine Nitrite Urine Bilirubin Urine Urobilinogen Ur Leukocyte Esterase Urine WBC (Auto) Urine RBC (Auto) U Hyaline Cast (Auto) U Epithel Cells (Auto) Urine Bacteria (Auto) Calcium Oxalate Crystal Hyaline Casts Adenovirus (PCR) Anaplasma Smear See Comment A A. phagocytophilum DNA Pending Anaplasma Comment Pending Babesia Smear See Comment Babesia microti DNA PCR B. pertussis DNA (PCR) B.parapertussis DNA PCR Lyme Disease Screen Negative C. pneumoniae DNA (PCR) Coronavirus OC43 (PCR) Coronavirus HKU1 (PCR) Coronavirus 229E (PCR) SARS-CoV-2 (PCR) Coronavirus NL63 (PCR) CMV IgM Ab CMV IgG Ab/TORCH Ehrlichia DNA (PCR) EBV Capsid Ag IgG Ab EBV Capsid Ag IgM Ab EBV EA Restrict+Diffuse EBV Nuclear Antigen Ab EBV Antibody Interp Hepatitis A IgM Ab Hep Bs Antigen Hep B Core IgM Ab Hepatitis C Antibody Monoscreen Human Metapneumovir PCR Influenza Type A (PCR) Influenza Type B (PCR) M. pneumoniae (PCR) Parainfluenza 1 (PCR) Parainfluenza 2 (PCR) Parainfluenza 3 (PCR) Parainfluenza 4 (PCR) Q Fever Phase I IgG Ab Q Fever Phase I IgM Ab Q Fever Phase II IgG Ab Q Fever Phase II IgM Ab RSV (RT-PCR) RSV (PCR) Entero/Rhino (PCR) Rickettsia IgG Ab Rickettsia IgM Ab Typhus Fever IgG Ab Typhus Fever IgM Ab 06/28/24 06/28/24 06/28/24 14:47 14:48 19:17 WBC RBC Hgb Hct MCV MCH MCHC RDW Std Deviation RDW Coeff of Michael Plt Count MPV Neutrophils % (Manual) Lymphocytes % (Manual) Reactive Lymphs % (Man) Monocytes % (Manual) Neutrophils # (Manual) Total Absolute Neuts Lymphocytes # (Manual) Reactive Lymphs # Total Abs Lymphocytes Monocytes # (Manual) Peripher Smr Path Cons PT INR APTT PTT Ratio Sodium Potassium Chloride Carbon Dioxide Anion Gap BUN Creatinine Est Cr Clr Drug Dosing eGFR BUN/Creatinine Ratio Glucose Lactate 1.5 Calcium Magnesium 1.6 L Total Bilirubin AST ALT Alkaline Phosphatase Troponin I High Sens 8.9 Total Protein Albumin Globulin Albumin/Globulin Ratio Lipase Procalcitonin TSH 1.447 Urine Color Urine Appearance Urine pH Ur Specific Frederic Urine Protein Urine Glucose (UA) Urine Ketones Urine Blood Urine Nitrite Urine Bilirubin Urine Urobilinogen Ur Leukocyte Esterase Urine WBC (Auto) Urine RBC (Auto) U Hyaline Cast (Auto) U Epithel Cells (Auto) Urine Bacteria (Auto) Calcium Oxalate Crystal Hyaline Casts Adenovirus (PCR) Not Detected Anaplasma Smear A. phagocytophilum DNA Anaplasma Comment Babesia Smear Babesia microti DNA PCR Pending B. pertussis DNA (PCR) Not Detected B.parapertussis DNA PCR Not Detected Lyme Disease Screen C. pneumoniae DNA (PCR) Not Detected Coronavirus OC43 (PCR) Not Detected Coronavirus HKU1 (PCR) Not Detected Coronavirus 229E (PCR) Not Detected SARS-CoV-2 (PCR) Not Detected Coronavirus NL63 (PCR) Not Detected CMV IgM Ab Pending CMV IgG Ab/TORCH Pending Ehrlichia DNA (PCR) Pending EBV Capsid Ag IgG Ab Pending EBV Capsid Ag IgM Ab Pending EBV EA Restrict+Diffuse Pending EBV Nuclear Antigen Ab Pending EBV Antibody Interp Pending Hepatitis A IgM Ab Pending Hep Bs Antigen Negative Hep B Core IgM Ab Pending Hepatitis C Antibody Negative Monoscreen Negative Human Metapneumovir PCR Not Detected Influenza Type A (PCR) Not Detected Influenza Type B (PCR) Not Detected M. pneumoniae (PCR) Not Detected Parainfluenza 1 (PCR) Not Detected Parainfluenza 2 (PCR) Not Detected Parainfluenza 3 (PCR) Not Detected Parainfluenza 4 (PCR) Not Detected Q Fever Phase I IgG Ab Pending Q Fever Phase I IgM Ab Pending Q Fever Phase II IgG Ab Pending Q Fever Phase II IgM Ab Pending RSV (RT-PCR) RSV (PCR) Not Detected Entero/Rhino (PCR) Not Detected Rickettsia IgG Ab Pending Rickettsia IgM Ab Pending Typhus Fever IgG Ab Pending Typhus Fever IgM Ab Pending 06/28/24 06/29/24 Unknown 06:46 WBC 7.44 RBC 3.53 L Hgb 10.7 L Hct 32.1 L MCV 90.9 MCH 30.3 MCHC 33.3 RDW Std Deviation 49.5 H RDW Coeff of Michael 14.6 H Plt Count 130 MPV 11.3 Neutrophils % (Manual) Lymphocytes % (Manual) Reactive Lymphs % (Man) Monocytes % (Manual) Neutrophils # (Manual) Total Absolute Neuts Lymphocytes # (Manual) Reactive Lymphs # Total Abs Lymphocytes Monocytes # (Manual) Peripher Smr Path Cons PT INR APTT PTT Ratio Sodium 139 Potassium 3.8 Chloride 107 Carbon Dioxide 26 Anion Gap 6 BUN 14 Creatinine 0.64 Est Cr Clr Drug Dosing 160.2 eGFR 105.06 BUN/Creatinine Ratio 21.9 H Glucose 133 H Lactate Calcium 8.0 L Magnesium 2.2 Total Bilirubin 0.5 AST 50 H ALT 53 H Alkaline Phosphatase 57 Troponin I High Sens Total Protein 6.0 Albumin 3.0 L Globulin 3.0 Albumin/Globulin Ratio 1.0 Lipase Procalcitonin TSH Urine Color Dark Yellow Urine Appearance Turbid A Urine pH 6.0 Ur Specific Frederic 1.035 H Urine Protein 2+ H Urine Glucose (UA) Negative Urine Ketones 2+ H Urine Blood Negative Urine Nitrite Negative Urine Bilirubin 1+ H Urine Urobilinogen Positive H Ur Leukocyte Esterase Trace H Urine WBC (Auto) 0-5 Urine RBC (Auto) 0-2 U Hyaline Cast (Auto) 3-5 H U Epithel Cells (Auto) 0-2 Urine Bacteria (Auto) 1+ H Calcium Oxalate Crystal Present A Hyaline Casts Present A Adenovirus (PCR) Anaplasma Smear A. phagocytophilum DNA Anaplasma Comment Babesia Smear Babesia microti DNA PCR B. pertussis DNA (PCR) B.parapertussis DNA PCR Lyme Disease Screen C. pneumoniae DNA (PCR) Coronavirus OC43 (PCR) Coronavirus HKU1 (PCR) Coronavirus 229E (PCR) SARS-CoV-2 (PCR) NEGATIVE Coronavirus NL63 (PCR) CMV IgM Ab CMV IgG Ab/TORCH Ehrlichia DNA (PCR) EBV Capsid Ag IgG Ab EBV Capsid Ag IgM Ab EBV EA Restrict+Diffuse EBV Nuclear Antigen Ab EBV Antibody Interp Hepatitis A IgM Ab Hep Bs Antigen Hep B Core IgM Ab Hepatitis C Antibody Monoscreen Human Metapneumovir PCR Influenza Type A (PCR) Negative Influenza Type B (PCR) Negative M. pneumoniae (PCR) Parainfluenza 1 (PCR) Parainfluenza 2 (PCR) Parainfluenza 3 (PCR) Parainfluenza 4 (PCR) Q Fever Phase I IgG Ab Q Fever Phase I IgM Ab Q Fever Phase II IgG Ab Q Fever Phase II IgM Ab RSV (RT-PCR) Negative RSV (PCR) Entero/Rhino (PCR) Rickettsia IgG Ab Rickettsia IgM Ab Typhus Fever IgG Ab Typhus Fever IgM Ab Diagnostic Findings CXR 06/28/24: Cardiac silhouette is upper limits of normal in size. Ill-defined bibasilar densities with interstitial coarsening. No pneumothorax, large pleural effusion or overt pulmonary edema. Bones appear grossly intact. IMPRESSION: -- Mild ill-defined bibasilar opacities favor atelectasis versus scarring. A mild infectious or inflammatory pneumonitis could appear similarly. Medications Administered Medication List Apixaban (Apixaban 5 Mg Tablet) 5 mg PO BID [facility] Stop: 07/28/24 19:59 Last Admin: 06/29/24 08:22 Dose: 5 mg Documented By: Admin: 06/28/24 21:08 Dose: 5 mg Documented By: COURTNEY Atorvastatin Calcium (Atorvastatin 40 Mg Tab) 40 mg PO HS [facility] Stop: 07/28/24 20:59 Last Admin: 06/28/24 21:08 Dose: 40 mg Documented By: COURTNEY Amiodarone HCl/Dextrose (Nexterone / D5w) 360 mg in 200 mls @ 16.667 mls/hr IV .Q12H [facility] Stop: 07/29/24 00:49 Last Admin: 06/29/24 00:53 Dose: 0.5 mg/min, 16.7 mls/hr Documented By: COURTNEY Co-signed By: JB Doxycycline Hyclate 100 mg/ (Dextrose) 100 mls @ 50 mls/hr IV Q12H [facility] Stop: 07/13/24 04:59 Last Infusion: 06/29/24 07:40 Dose: Infused Documented By: Admin: 06/29/24 05:42 Dose: 50 mls/hr Documented By: COURTNEY Magnesium Oxide (Magnesium Oxide 400 Mg Tab) 400 mg PO BID [facility] Stop: 07/28/24 20:59 Last Admin: 06/29/24 08:22 Dose: 400 mg Documented By: Admin: 06/28/24 21:08 Dose: 400 mg Documented By: COURTNEY Discontinued Medications Azithromycin (Azithromycin 250 Mg Tab) 500 mg PO NOW ONE Stop: 06/28/24 14:15 Last Admin: 06/28/24 14:53 Dose: 500 mg Documented By: TIFFANIE Sodium Chloride (Nss) 1,000 mls @ 999 mls/hr IV .Q1H1M [facility] Stop: 06/28/24 16:15 Last Infusion: 06/28/24 16:19 Dose: Infused Documented By: Admin: 06/28/24 15:18 Dose: 999 mls/hr Documented By: Infusion: 06/28/24 15:18 Dose: Infused Documented By: Admin: 06/28/24 14:45 Dose: 999 mls/hr Documented By: ESTELA Ceftriaxone Sodium (Rocephin) 2,000 mg in 50 mls @ 100 mls/hr IV NOW STA Stop: 06/28/24 14:43 Last Infusion: 06/28/24 15:30 Dose: Infused Documented By: Admin: 06/28/24 14:56 Dose: 100 mls/hr Documented By: TIFFANIE Sodium Chloride (Nss) 1,000 mls @ 999 mls/hr IV .Q1H1M ONE Stop: 06/28/24 16:35 Last Infusion: 06/28/24 17:09 Dose: Infused Documented By: Admin: 06/28/24 15:46 Dose: 999 mls/hr Documented By: KLARISSA Doxycycline Hyclate 100 mg/ (Dextrose) 100 mls @ 50 mls/hr IV NOW STA Stop: 06/28/24 17:51 Last Infusion: 06/28/24 19:40 Dose: Infused Documented By: Admin: 06/28/24 16:58 Dose: 50 mls/hr Documented By: ESTELA Amiodarone HCl/Dextrose (Nexterone / D5w) 360 mg in 200 mls @ 33.333 mls/hr IV ONE ONE; Protocol Stop: 06/29/24 00:49 Last Infusion: 06/29/24 01:39 Dose: Infused Documented By: COURTNEY Co-signed By: JB Admin: 06/28/24 19:39 Dose: 1 mg/min, 33.3 mls/hr Documented By: COURTNEY Co-signed By: JB Doxycycline Hyclate 100 mg/ (Dextrose) 100 mls @ 50 mls/hr IV Q12H [facility] Stop: 07/12/24 04:59 Last Admin: 06/28/24 19:20 Dose: Not Given Documented By: Admin: 06/28/24 19:19 Dose: Not Given Documented By: JB Magnesium Sulfate/Dextrose (Magnesium Sulfate / D5w) 1 gm in 100 mls @ 50 mls/hr IV Q2H [facility] Stop: 06/29/24 00:29 Last Infusion: 06/29/24 01:40 Dose: Infused Documented By: Admin: 06/28/24 23:27 Dose: 50 mls/hr Documented By: Infusion: 06/28/24 23:27 Dose: Infused Documented By: Admin: 06/28/24 21:30 Dose: 50 mls/hr Documented By: COURTNEY Ibuprofen (Ibuprofen 200 Mg Tab) 400 mg PO NOW STA Stop: 06/28/24 14:15 Last Admin: 06/28/24 14:35 Dose: 400 mg Documented By: TIFFANIE PG Care Time/CCT Total # of Minutes Spent Total Time Spent with Patient: Total time spent is greater than 50% in coordination of care (as documented) at patient's floor/unit and/or counseling patient: Coding Level of Care Code 87178 INT INP/OBS CARE 3/75MIN Diagnoses Atrial flutter with rapid ventricular response I48.92 Heart murmur R01.1 Hyperlipidemia, unspecified hyperlipidemia type E78.5 Hyperlipidemia type: unspecified (3) Hyperlipidemia Hyperlipidemia type: unspecified Qualified Code(s): E78.5 - Hyperlipidemia, unspecified
--- NOTE | 2024-06-29 09:44 | Electrocardiogram Report ---
Test Reason : Blood Pressure : */* mmHG Vent. Rate : 133 BPM Atrial Rate : 286 BPM P-R Int : * ms QRS Dur : 110 ms QT Int : 310 ms P-R-T Axes : -81 -45 119 degrees QTcB Int : 461 ms Atrial flutter with variable A-V block Left axis deviation Incomplete right bundle branch block Left ventricular hypertrophy with repolarization abnormality ( R in aVL ) Abnormal ECG When compared with ECG of 28-Jun-2024 13:17, (unconfirmed) ST less depressed in Inferior leads ST less depressed in Lateral leads Confirmed by Ismael Post ([id number]) on 06/29/2024 9:43:43 AM Referred By: REFERRED SELF Confirmed By: Ismael Post
[2024-06-29] MEDS: METOPROLOL SUCC 50MG EXT REL TAB PO SCH (10:47)
--- NOTE | 2024-06-29 10:50 | Discharge Summary ---
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 Lyme titer, mono screen negative RUQ US with fatty liver and hepatomegaly with liver 23 cm CXR without significant pneumonia changes, perhaps bronchitis which can also go along with Anaplasmosis Received Doxycycline 100mg IV BID x 2 doses and feeling 100% improved, all symptoms gone--> dc to home on doxy 100mg po bid x 9 more days to complete 10 day course at home Lactate WNL but hypotensive therefore received 3L NSS bolus-hypotension was likely related to his a. flutter with rapid rate rather than ongoing fluid deficit BPs normalized on day of discharge Advised repeat CBC, CMP in 1 week with PCP (2) Anaplasmosis: as above (3) Atrial flutter with rapid ventricular response: Rates in 140s on admission, with hypotension In setting of sepsis, [id number] 1--> started Eliquis 5mg PO BID fr stroke risk reduction. No h/o bleeding TSH normal, magnesium was low-replaced with IV and mag po Started on amiodarone gtt and converted to NSR overnight with rates in 70s Consult cardiology appreciated--> no further amiodarone given fci side effects and brief Aflutter related to acute illness. Start Toprol XL 50mg po daily and continue Eliquis 5mg po bid ECHO normal has f/u appt with Cardiology [place] next week for thoracic aortic aneurysm (4) Hyperlipidemia: Continue atorvastatin (5) Transaminitis: Viral hepatitis, EBV and CMV pending Likely from Anaplasmosis as wlel as fatty liver Advised weight loss, no/minimal EtOH use, ongoing f/u of fatty liver Plan VTE Prophylaxis - Eliquis Disposition - stable for dc to home. DOing very well Notes For Next Care Provider Check CBC, CMP in 1 week Follow up on remaining tick borne illness and CMV,EBV when available in 1 week Medication Changes From Visit Added doxycycline 00mg po bid x 9 more days Added ELiquis 5mg po bid and Toprol XL 50mg po daily Admission HPI Per Admitting Provider Lazarus Guerrero is a 64 year old male who presents to the ER with fever, chills and shortness of breath on exertion. He is from [place] and in [place] for hunting. Since Thursday (4 days ago) he reports cyclic fever and chills, reduced appetite, headache and dehydrated despite increasing fluid intakes. He reports gong hunting yesterday and had difficulty even walking. He went to an urgent care in [place] who directed him to the ER. He wonders whether a sandwich he ate caused his illness although denies any nausea, vomiting, abdominal pain or diarrhea. No respiratory symptoms other than shortness of breath on exertion. No urinary symptoms. Having palpitations, no chest pain, pedal edema. No history of arrhythmia but has a gastroenterology physician due to a heart murmur with unknown valvular diagnosis. No prior cardiovascular disease. Discharge Exam Constitutional WD/WN, vitals as above Neck trachea midline, no thyromegaly Respiratory normal respiratory effort, lungs clear to auscultation Cardiovascular RRR, no murmur, no edema Chest (Breasts) Chest: normal inspection of chest Gastrointestinal (Abdomen) normal bowel sounds, soft, nontender, no hepatosplenomegaly Musculoskeletal Extremities: extremities normal to inspection; no cyanosis and no clubbing Skin no rashes, warm and dry Neurologic moves all extremities and awake; no focal motor deficits Psychiatric A+Ox3, euthymic affect Lymphatic no lymphedema Discharge Plan Discharge Items Patient Disposition: Home - Self-Care Reason For Visit: SEPSIS, A. FLUTTER RVR Discharge Diagnosis: Rapid atrial flutter Anaplasmosis Condition on Discharge: Good Activity: As commented below Lifting: Gradually increase as tolerated Bathing: No limitations Exercise/Sports: Gradually increase as tolerated Non-emergency contact: Primary Care Provider and W[employer]ender Call non-emergency contact if: you have any medication questions and your symptoms worsen Follow-up/Referrals: PCP,NO [Primary Care Provider] - (Follow up with your PCP and Wax Blender within 1 week) Diet: Regular Addtl Attending Provider Instructions: Please finish out the course of doxycycline for 9 more days for the tick-borne illness you have called Anaplasmosis. Your liver enzymes were elevated on blood work. This is something we commonly see with an Anaplasmosis infection, however your liver was also noted to be enlarged and fatty on a liver ultrasound. There are some other blood tests pending related to liver diseases that your PCP can follow up on after discharge. Fatty liver can also be from alcohol use as well as from obesity. It is important to cut down on or cut out completely any alcohol use and to work on weight loss by eating a low carbohydrate diet. Please have your PCP check your liver tests on blood work at your follow up appointment within 1 week. Your heart converted back to a normal heart rhythm. Please continue taking Eliquis as a blood thinner to prevent stroke associated with atrial flutter. You were also started on Toprol XL to help control your heart rate should you ever go back into atrial flutter in the future. This medication can also lower blood pressure. Please keep an eye on your blood pressure and heart rates at home with a digital blood pressure cuff. Here are some guidelines about taking Eliquis: You could have am increased risk of blood clots if you stop taking Eliquis. Do not stop taking Eliquis without talking to your doctor. Stopping Eliquis inc reases your risk of having a stroke. There is an increased risk of bleeding. Eliquis can cause bleeding which can be serious and may lead to . This is because Eliquis is a blood thinner medicine (anticoagulant) that lowers blood clotting. During treatment with Eliquis you are likely to bruise more easily, and it may take longer for bleeding to stop. * If you ever cannot get bleeding to stop please report to the ER * If you have a bruise that is large/painful or swollen you should also be seen by a medical provider Call your doctor or get medical help right away if you or your child develop any of these signs or symptoms of bleeding: unexpected bleeding or bleeding that lasts a long time, such as: * Nose bleeds that happen often * unusual bleeding from the gums * bleeding that is severe or you cannot control * red, pink or brown urine * bright red or black stools (looks like tar) * cough up blood or blood clots * vomit blood or your vomit looks like coffee grounds If you have a fall and hit your head, please come to the ER and get checked out. Being on a blood thinner increases your risk of brain bleeding with falls. Avoid high risk activities, such as: * standing on tall ladders * riding motorcycles * anything where you are high risk for falls or trauma Avoid taking NSAIDs (pain medication) while you are taking a blood thinner. This includes: * Ibuprofen, Aleve Advil, Naproxen. * If you are ever unsure you can ask your doctor or pharmacist. * Tylenol is SAFE to take. If you have any new or worsening chest pain or shortness of breath please return to the ER. Pending Studies at Discharge: Yes (CMV,EBV,Hepatitis A/B,Babesiosis PCR,Anaplasmosis confirmatory PCR) Studies:: Q-fever,Typhus,Fidel Mt spotted fever;peripheral smear Stand-Alone Forms: My [facility] [employer], Smoking Cessation Medications and DC Order Prescriptions: New metoprolol succinate 50 mg Tablet Extended Release 24 Hr 50 mg PO QAM Qty: 30 0RF Eliquis 5 mg Tablet 5 mg PO BID Qty: 60 0RF doxycycline hyclate 100 mg tablet 100 mg PO BID Qty: 18 0RF magnesium oxide 400 mg (241.3 mg magnesium) Tablet 400 mg PO HS Qty: 30 0RF Rx Instructions: Over the counter Continued atorvastatin 40 mg tablet 40 mg PO HS Discharge Orders: Discharge Order (Routine); Ordered 06/29/24 Ordered By: Shelley Mata Admission Data Admit Date/Time: 06/28/24 16:38 Attending Provider: Shelley Mata Admit Provider: Yonatan Esteban Primary Care Provider: PCP,NO Other Providers: Yonatan Esteban; [facility] Hospital Stay Data Consultations 06/28/24 15:35 ED Decision to Admit Stat 06/28/24 18:58 Consult Cardiology Routine Diagnostic Imagining Performed 06/28/24 16:04 US gallbladder Stat ECHO Pending Results Patient Have Any Pending Studies at Discharge: Yes (CMV,EBV,Hepatitis A/B,Babesiosis PCR,Anaplasmosis confirmatory PCR) Discharge Instructions Given to Patient (Per Discharging Provider) Please finish out the course of doxycycline for 9 more days for the tick-borne illness you have called Anaplasmosis. Your liver enzymes were elevated on blood work. This is something we commonly see with an Anaplasmosis infection, however your liver was also noted to be enlarged and fatty on a liver ultrasound. There are some other blood tests pending related to liver diseases that your PCP can follow up on after discharge. Fatty liver can also be from alcohol use as well as from obesity. It is important to cut down on or cut out completely any alcohol use and to work on weight loss by eating a low carbohydrate diet. Please have your PCP check your liver tests on blood work at your follow up appointment within 1 week. Your heart converted back to a normal heart rhythm. Please continue taking Eliquis as a blood thinner to prevent stroke associated with atrial flutter. You were also started on Toprol XL to help control your heart rate should you ever go back into atrial flutter in the future. This medication can also lower blood pressure. Please keep an eye on your blood pressure and heart rates at home with a digital blood pressure cuff. Here are some guidelines about taking Eliquis: You could have am increased risk of blood clots if you stop taking Eliquis. Do not stop taking Eliquis without talking to your doctor. Stopping Eliquis i ncreases your risk of having a stroke. There is an increased risk of bleeding. Eliquis can cause bleeding which can be serious and may lead to . This is because Eliquis is a blood thinner medicine (anticoagulant) that lowers blood clotting. During treatment with Eliquis you are likely to bruise more easily, and it may take longer for bleeding to stop. * If you ever cannot get bleeding to stop please report to the ER * If you have a bruise that is large/painful or swollen you should also be seen by a medical provider Call your doctor or get medical help right away if you or your child develop any of these signs or symptoms of bleeding: unexpected bleeding or bleeding that lasts a long time, such as: * Nose bleeds that happen often * unusual bleeding from the gums * bleeding that is severe or you cannot control * red, pink or brown urine * bright red or black stools (looks like tar) * cough up blood or blood clots * vomit blood or your vomit looks like coffee grounds If you have a fall and hit your head, please come to the ER and get checked out. Being on a blood thinner increases your risk of brain bleeding with falls. Avoid high risk activities, such as: * standing on tall ladders * riding motorcycles * anything where you are high risk for falls or trauma Avoid taking NSAIDs (pain medication) while you are taking a blood thinner. This includes: * Ibuprofen, Aleve Advil, Naproxen. * If you are ever unsure you can ask your doctor or pharmacist. * Tylenol is SAFE to take. If you have any new or worsening chest pain or shortness of breath please return to the ER. Total Time Total Time Spent Total Time Spent (In Minutes): 35 min Total Time Includes: Examination of the Patient, Discharge Planning and Medication Reconciliation Coding Level of Care Code 07321 INP/OBS DISCH >30 MIN Diagnoses Sepsis without acute organ dysfunction, due to unspecified organism A41.9 Sepsis acute organ dysfunction status: without acute organ dysfunction Sepsis type: sepsis due to unspecified organism Anaplasmosis A77.49 Atrial flutter with rapid ventricular response I48.92 Hyperlipidemia, unspecified hyperlipidemia type E78.5 Hyperlipidemia type: unspecified Transaminitis R74.01
[2024-06-29 12:07] LABS: ALC (manual) 5.21 K/uL (1.2-3.4); ANC (manual) 1.93 K/uL (1.4-6.5); Basophils # (manual) 0.07 K/uL (0-0.2); Basophils % (manual) 1 %; Lymphocytes # (manual) 1.71 K/uL (1.2-3.4); Lymphocytes % (manual) 23 %; Monocytes # (manual) 0.22 K/uL (0.11-0.59); Monocytes % (manual) 3 %; Neutrophils # (manual) 1.93 K/uL (1.40-6.50); Neutrophils % (manual) 26 %; Reactive Lymphocytes % (manual) 47 %
[2024-06-29 13:26] LABS: Anaplasmosis Smear(Rpt to DOH) Pos for Anaplasma
[2024-06-30 13:57] LABS: Epstein Barr Virus Early Ag Ab <9.00 U/mL
[2024-07-01 13:59] LABS: CMV IgG Antibody <0.60 U/mL; CMV IgM Antibody <30.00 AU/mL; Hepatitis A Antibody IgM NON-REACTIVE (NON-REACTIVE); Hepatitis B Core Antibody IgM NON-REACTIVE (NON-REACTIVE)
== END 2024-06-29 12:40 | disposition home or self-care (01) | DRG 872 ==
LOC: ED 12:49 → 2S 16:38 → SUATTDRO 16:38 → 2S 17:53